=== PATIENT | female | born 1990 | race Caucasian/White ===

== ENCOUNTER 2020-09-04 09:47 | Emergency (ER) | payer SELFPAY ==
[~2020-09-04] VITALS: Ht 162.6 cm; Wt 81.8 kg
[2020-09-04] MEDS ORDERED: ONDANSETRON PF 4 MG/2 ML VIAL. IVP ONE ×2 (10:15→14:15)
[2020-09-04] MEDS ORDERED: FAMOTIDINE 20 MG/2 ML VIAL IVP ONE (10:15)
[2020-09-04] MEDS ORDERED: IV NORMAL SALINE 1,000ML 1,000 ML IV ONE ×2 (10:15→13:00)
[2020-09-04 10:24] LABS: BASO # 0.1 x10^3/uL (0.0-0.2); BASO % 1 % (0-3); EOS # 0.1 x10^3/uL (0.0-0.7); EOS % 1 % (0-3); HEMATOCRIT 35.6 % (36.0-47.0); HEMOGLOBIN 11.2 g/dL (12.0-15.5); LYMPH # 1.5 x10^3/uL (1.0-4.8); LYMPH % 13 % (24-48); MEAN CORPUSCULAR HEMOGLOBIN 22 pg (25-35); MEAN CORPUSCULAR HGB CONC 31 g/dL (31-37); MEAN CORPUSCULAR VOLUME 70 fL (79-100); MONO # 0.7 x10^3/uL (0.0-1.1); MONO % 6 % (0-9); NEUT # 9.1 x10^3uL (1.8-7.7); NEUT % 80 % (31-73); PLATELET COUNT 262 x10^3/uL (140-400); RED BLOOD COUNT 5.06 x10^6/uL (3.50-5.40); WHITE BLOOD COUNT 11.4 x10^3/uL (4.0-11.0)
[2020-09-04] MEDS ORDERED: KETOROLAC 15 MG/ML VIAL. IVP ONE (10:30)
[2020-09-04 10:39] LABS: CALCIUM 8.8 mg/dL (8.5-10.1); CREATININE 0.6 mg/dL (0.6-1.0); POTASSIUM 3.4 mmol/L (3.5-5.1)
--- NOTE | 2020-09-04 10:43 | PHYS DOC ---
Past History Additional Past Medical Histor: Hyperemesis Gravidarum Past Surgical History: Tubal ligation Smoking: Cigarettes Alcohol Use: None Drug Use: None General Adult EDM: Chief Complaint: ABDOMINAL PAIN HPI: HPI: Patient is a 29-year-old female who presents with 2 days of vomiting and abdominal pain. Reports surgical history of tubal ligation. The patient states that she woke up in the middle of the night with vomiting. The patient states that she had "sloppy nathaniel's" for dinner the night before getting sick. She denies any sick contacts and has not been around anyone with COVID-19, that she is aware of. She developed abdominal pain shortly after she started vomiting. She describes the pain as 8 out of 10, dull, with no palliative or provoking factors. Her last bowel movement was 3 days ago and she has not passed gas, but this is normal for her. She is currently menstruating. Patient denies headaches, changes in vision, and diarrhea. She does state that she becomes dizzy when standing up from a seated position. Review of Systems: Review of Systems: Constitutional: Denies fever or chills; reports malaise Eyes: Denies redness or eye pain HENT: Denies nasal congestion or sore throat Respiratory: Denies cough or shortness of breath Cardiovascular: Denies chest pain or palpitations GI: Reports epigastric abdominal pain, nausea, and vomiting. Denies diarrhea. : Denies dysuria or hematuria Musculoskeletal: Denies back pain or joint pain Integument: Denies rash or skin lesions Neurologic: Denies headache, focal weakness or sensory changes Complete systems were reviewed and found to be within normal limits, except as documented in this note. Current Medications: Current Meds: Current Medications Medications (Trade) Dose Ordered Sig/[facility] Start Time Stop Time Status Last Admin Dose Admin Famotidine (Pepcid Vial) 20 mg 1X ONCE 09/04/20 10:15 09/04/20 10:16 DC Ketorolac Tromethamine (Toradol 15mg Vial) 15 mg 1X ONCE 09/04/20 10:30 09/04/20 10:31 UNV Ondansetron HCl (Zofran) 4 mg 1X ONCE 09/04/20 10:15 09/04/20 10:16 DC Sodium Chloride 1,000 ml @ 1,000 mls/hr 1X ONCE 09/04/20 10:15 09/04/20 11:14 Allergies: Allergies: Allergies Coded Allergies Type Severity Reaction Last Updated Verified No Known Drug Allergies 09/04/20 No Physical Exam: PE: Constitutional: Well developed, well nourished, no acute distress, non-toxic ap pearance HENT: Normocephalic, atraumatic Eyes: Conjunctiva normal, no discharge Neck: Normal range of motion, no tenderness, supple Lungs & Thorax: No respiratory distress, equal chest rise and fall Abdomen: Soft, no rebound tenderness, negative Zhang's sign, negative McBurney's sign, negative heeltap, mild epigastric discomfort on palpation Skin: Warm, dry, no erythema, no rash Back: No tenderness, no CVA tenderness Extremities: No tenderness, ROM intact, no edema Neurologic: Alert and oriented X 3, normal motor function, normal sensory function, no focal deficits noted Psychologic: Affect normal, judgment normal EKG: EKG: [] Radiology/Procedures: Radiology/Procedures: [] Heart Score: C/O Chest Pain: N/A Course & Med Decision Making: Course & Med Decision Making This patient is a 29-year-old female who presents with 2 days of vomiting and epigastric abdominal pain. She has had a tubal ligation and is currently on her period. Her last bowel movement was 2 to 3 days ago and she has not been passing gas, but this is normal for the patient. The patient denies any history of marijuana use. The patient does not have any peritoneal signs and has no focal abdominal tenderness. Symptomatic treatment provided. IVF hydration given. Patient with interval improvement of symptoms. Labs obtained and posted to chart. Of note, patient's UDS positive for THC. Discussed possibility of cyclic vomiting with patient due to THC abuse. Patient stable for discharge with outpatient follow-up with PCP/GI. GI referral provided. Discussed findings and plan with patient, who acknowledges understanding and agreement. [place] Disclaimer: [place] Disclaimer: This electronic medical record was generated, in whole or in part, using a voice recognition dictation system. Departure Departure: Impression: Primary Impression: Epigastric abdominal pain Additional Impression: Nausea and vomiting Qualified Codes: R11.2 - Nausea with vomiting, unspecified Disposition: 01 DC HOME SELF CARE/HOMELESS Condition: STABLE Referrals: PCP,JODEE (PCP) RAPHAEL LINTON MD Patient Instructions: Abdominal Pain, [id number], Clear Liquid Diet, [id number], Nausea and Vomiting, [id number] Scripts Ondansetron (ONDANSETRON ODT) 4 Mg Tab.rapdis 1 TAB PO PRN Q6-8HRS PRN for NAUSEA, #16 TAB Prov: LUCIA LAMB DO 09/04/20 Hyoscyamine Sulfate (LEVSIN-SL) 0.125 Mg Tab.subl 0.125 MG SL Q4-6HRS PRN for PAIN, #14 TAB Prov: LUCIA LAMB DO 09/04/20 Famotidine (PEPCID) 20 Mg Tablet 1 TAB PO BID for Gastritis, #20 TAB Prov: LUCIA LAMB DO 09/04/20 LUCIA LAMB DO Sep 04, 2020 10:43
[2020-09-04 10:44] LABS: ALBUMIN/GLOBULIN RATIO 1.2 (1.0-1.7); TOTAL BILIRUBIN 0.2 mg/dL (0.2-1.0); TOTAL PROTEIN 7.3 g/dL (6.4-8.2)
[2020-09-04 13:00] VITALS: BP 174/104
[2020-09-04 13:16] LABS: PLT ESTIMATE ADEQUATE (ADEQUATE)
[2020-09-04 13:32] LABS: OVALOCYTES FEW
[2020-09-04 13:34] LABS: MICROCYTOSIS PRESENT
[2020-09-04 13:43] LABS: BACTERIA,URINE 0 /HPF (0-FEW); BILIRUBIN,URINE NEG (NEG); CLARITY,URINE HAZY; COLOR,URINE YELLOW; GLUCOSE,URINE NEG (NEG); NITRITE,URINE NEG (NEG); SQUAMOUS EPITHELIAL CELL,UR MANY /LPF; UROBILINOGEN,URINE 0.2 mg/dL (0.2 mg/dL)
[2020-09-04 13:44] LABS: BARBITURATES NEG (NEG); BENZODIAZEPINES NEG (NEG); CANNABINOIDS POS (NEG); COCAINE NEG (NEG); METHADONE NEG (NEG); OPIATES NEG (NEG); PHENCYCLIDINE NEG (NEG)
[2020-09-04 13:46] LABS: AMPHETAMINE/METHAMPHETAMINE NEG (NEG)
[2020-09-04] MEDS ORDERED: HYOS0.1265 SL (13:59)
[2020-09-04] MEDS ORDERED: FAMO-63 PO (13:59)
[2020-09-04] MEDS ORDERED: ONDA4TAB12 PO (13:59)
== END 2020-09-04 14:10 | disposition home or self-care (01) ==
LOC: ER 09:47
DX: R10.13 Epigastric pain (principal); R11.2 Nausea with vomiting, unspecified; R42 Dizziness and giddiness; F17.210 Nicotine dependence, cigarettes, uncomplicated; Z98.51 Tubal ligation status
CPT/HCPCS: 36415; 80053; 80307; 81001; 81025; 83690; 83735; 85025; 96361; 96374; 96375; 96376; 99284; G0480; J1885; J2405; J3490; J7030